=== PATIENT | male | born 1965 | race Caucasian/White ===

== ENCOUNTER 2021-06-24 18:32 | Inpatient (IN) ==
[2021-06-24] MEDS ORDERED: 0.9 % Sodium Chloride 1,000 ML IVC ONE ×2 (19:39→21:16)
[2021-06-24 19:41] LABS: Basophils # 0.1 K/mcL (0.0-0.2); Basophils % 0.4 %; Eosinophils # 0.2 K/mcL (0.0-0.6); Eosinophils % 1.6 %; Hematocrit 34.5 % (37.5-50.1); Hemoglobin 11.1 g/dL (12.9-16.9); Immature Granulocytes % 1.4 % (0-4); Lymphocytes # 1.9 K/mcL (0.6-4.6); Lymphocytes % 13.8 %; Mean Corpuscular HGB Conc 32.2 g/dL (31.6-35.5); Mean Corpuscular Hemoglobin 26.7 pg (28.0-33.3); Mean Corpuscular Volume 82.9 fL (83.0-100.0); Mean Platelet Volume 9.4 fL (9.4-12.4); Monocytes # 0.8 K/mcL (0.0-1.3); Monocytes % 5.4 %; Neutrophils # 10.9 K/mcL (1.6-8.9); Platelet Count 350 K/mcL (140-400); Red Blood Count 4.16 M/mcL (4.19-5.50); Red Cell Distribution Width 15.5 % (11.5-14.5); Segmented Neutrophils % 77.4 %
[2021-06-24 19:48] LABS: VBG HCO3 25 mEq/L (21-27); VBG PCO2 30 mmHg (41-51); VBG PH 7.53 pH Units (7.32-7.42); VBG PO2 132 mmHg (25-50)
[2021-06-24 20:08] LABS: Alanine Aminotransferase 12 Units/L (7-52); Albumin 3.5 g/dL (3.5-5.7); Albumin/Globulin Ratio 0.7 (1.1-2.2); Alkaline Phosphatase 83 Units/L (34-104); Aspartate Amino Transferase 25 Units/L (13-39); BUN/Creatinine Ratio 18 (6-26); Bilirubin,Indirect 0.3 mg/dL (0.0-1.0); Bilirubin,Total 0.3 mg/dL (0.3-1.0); Blood Urea Nitrogen 49 mg/dL (6-20); Calcium 12.5 mg/dL (8.6-10.3); Carbon Dioxide 26 mEq/L (23-29); Chloride 95 mEq/L (98-107); Creatine Kinase 38 Units/L (30-223); Ethanol < 10 mg/dL (Less than 10); Globulin 4.9 g/dL (2.4-3.5); Glucose 92 mg/dL (70-105); Magnesium 1.8 mg/dL (1.6-2.6); Osmolality,Calculated 289 (280-300); Potassium 4.3 mEq/L (3.5-5.1); Sodium 133 mEq/L (136-145); Total Protein 8.4 g/dL (6.4-8.9); eGFR For African Americans 29 (> 60); eGFR For Non-African Americans 24 (> 60)
[2021-06-24 20:10] LABS: Bacteria,Urine Few per hpf (None-Few); Bilirubin,Urine Negative (Negative); Blood,Urine Trace (Negative); Calcium Oxalate Crystals,Urine Present per hpf; Clarity,Urine Turbid (Clear); Color,Urine Yellow (Yellow); Glucose,Urine (UA) Normal (Normal); Hyaline Casts,Urine Few per lpf (None Seen); Ketones,Urine Negative (Negative); Leukocyte Esterase,Urine Large (Negative); Mucus,Urine Few per lpf (None-Few); Nitrite,Urine Negative (Negative); Protein,Urine 50 mg/dL (Neg-Trace); Specific Gravity,Urine 1.016 (1.010-1.025); Squamous Epithelial Cell,Urine Few per hpf (None-Few); Urobilinogen,Urine Normal (Normal); WBC,Urine TNTC per hpf (0-3)
[2021-06-24 20:16] LABS: Amphetamine Screen,Urine Negative ng/mL (Cutoff=1000); Barbiturate Screen,Urine Negative ng/mL (Cutoff=200); Benzodiazepines Screen,Urine Negative ng/mL (Cutoff=200); Cannabinoid Screen,Urine Negative ng/mL (Cutoff = 50); Cocaine Screen,Urine Negative ng/mL (Cutoff= 300); Opiate Screen,Urine Negative ng/mL (Cutoff=300); Phencyclidine Screen,Urine Negative ng/mL (Cutoff=25)
[2021-06-24] MEDS ORDERED: Piperacillin/Tazobactam 3.375 GM in 0.9 % Sodium Chloride Mini Bag 100 ML IVPB ONE (20:27)
[2021-06-24] MEDS ORDERED: Vancomycin 1,250 MG/262.5 ML IV.SOLN IVPB ONE (20:27)
[2021-06-24] MEDS ORDERED: Melatonin 3 MG TABLET PO PRN (21:15)
[2021-06-24] MEDS ORDERED: 0.9 % Sodium Chloride 1,000 ML IVC SCH (21:15)
[2021-06-24] MEDS ORDERED: Acetaminophen 325 MG TABLET PO PRN (21:15)
[2021-06-24] MEDS ORDERED: *HR* Promethazine 25 MG/ML VIAL IM PRN (21:15)
[2021-06-24] MEDS ORDERED: Naloxone 0.4 MG/ML INJ IVP PRN (21:15)
[2021-06-24] MEDS ORDERED: Ondansetron 4 MG/2 ML VIAL IVP PRN (21:15)
[2021-06-24 22:37] LABS: VBG Ionized Calcium 1.49 mmol/L (1.15-1.35)
[2021-06-25 00:53] LABS: Hematocrit 32.8 % (37.5-50.1); Hemoglobin 10.2 g/dL (12.9-16.9); Mean Corpuscular HGB Conc 31.1 g/dL (31.6-35.5); Mean Corpuscular Hemoglobin 26.2 pg (28.0-33.3); Mean Corpuscular Volume 84.3 fL (83.0-100.0); Mean Platelet Volume 9.1 fL (9.4-12.4); Platelet Count 330 K/mcL (140-400); Red Blood Count 3.89 M/mcL (4.19-5.50); Red Cell Distribution Width 15.6 % (11.5-14.5); White Blood Count 11.1 K/mcL (4.3-11.1)
[2021-06-25 00:58] LABS: Calcium 11.9 mg/dL (8.6-10.3); Potassium 3.6 mEq/L (3.5-5.1)
[2021-06-25] MEDS ORDERED: 0.9 % Sodium Chloride 1,000 ML IVC ONE (01:00)
[2021-06-25] MEDS ORDERED: D5% in Water 1,000 ML IVC PRN (01:05)
[2021-06-25] MEDS ORDERED: *HR* Dextrose 50 % in Water (Syg) 50 ML SYRINGE IVP PRN (01:05)
[2021-06-25] MEDS ORDERED: Dextrose 4 GM Chewable Tablets PO PRN ×2 (01:05)
[2021-06-25 07:06] LABS: Protein/Creatinine Ratio,Urine 0.76 mg/mg (0.00-0.20)
[2021-06-25] MEDS: cefTRIAXone 1,000 MG in 0.9 % Sodium Chloride 10 ML IVP SCH (07:44)
[2021-06-25] MEDS: Insulin LISPRO 300 UNITS/3 ML VIAL SUBQ SCH ×3 (07:47→17:57)
[2021-06-25] MEDS: *HR* Heparin 5,000 UNIT/ML VIAL SQ SCH (21:07)
[2021-06-26 05:01] LABS: Basophils % 0.5 %; Eosinophils # 0.2 K/mcL (0.0-0.6); Hematocrit 32.5 % (37.5-50.1); Hemoglobin 10.1 g/dL (12.9-16.9); Immature Granulocytes % 1.5 % (0-4); Lymphocytes # 1.4 K/mcL (0.6-4.6); Lymphocytes % 18.5 %; Mean Corpuscular HGB Conc 31.1 g/dL (31.6-35.5); Mean Corpuscular Hemoglobin 26.9 pg (28.0-33.3); Mean Corpuscular Volume 86.7 fL (83.0-100.0); Mean Platelet Volume 9.3 fL (9.4-12.4); Monocytes # 0.6 K/mcL (0.0-1.3); Monocytes % 7.3 %; Neutrophils # 5.4 K/mcL (1.6-8.9); Platelet Count 293 K/mcL (140-400); Red Blood Count 3.75 M/mcL (4.19-5.50); Red Cell Distribution Width 15.9 % (11.5-14.5); Segmented Neutrophils % 69.2 %; White Blood Count 7.8 K/mcL (4.3-11.1)
[2021-06-26] MEDS: *HR* Heparin 5,000 UNIT/ML VIAL SQ SCH ×3 (05:06→20:13)
[2021-06-26 05:29] LABS: Albumin/Globulin Ratio 0.8 (1.1-2.2); Bilirubin,Total 0.3 mg/dL (0.3-1.0); Calcium 10.3 mg/dL (8.6-10.3); Globulin 3.8 g/dL (2.4-3.5); Potassium 4.4 mEq/L (3.5-5.1); Total Protein 6.8 g/dL (6.4-8.9)
[2021-06-26] MEDS: Insulin LISPRO 300 UNITS/3 ML VIAL SUBQ SCH ×3 (08:36→17:35)
[2021-06-26] MEDS: cefTRIAXone 1,000 MG in 0.9 % Sodium Chloride 10 ML IVP SCH (08:37)
[2021-06-26] MEDS: Cefdinir 300 MG CAPSULE PO SCH ×2 (13:47→20:13)
[2021-06-26] MEDS: Sucralfate 1 GM TABLET PO SCH (20:13)
[2021-06-27 03:20] LABS: Calcium 9.5 mg/dL (8.6-10.3); Magnesium 1.4 mg/dL (1.6-2.6); Potassium 4.4 mEq/L (3.5-5.1)
[2021-06-27] MEDS: *HR* Heparin 5,000 UNIT/ML VIAL SQ SCH (05:28)
[2021-06-27] MEDS: Cefdinir 300 MG CAPSULE PO SCH (08:49)
[2021-06-27] MEDS: Sucralfate 1 GM TABLET PO SCH (08:49)
[2021-06-27] MEDS: Insulin LISPRO 300 UNITS/3 ML VIAL SUBQ SCH (08:50)
[2021-06-27] MEDS ORDERED: Loratadine 10 MG TABLET PO SCH (09:00)
[2021-06-27 11:34] VITALS: BP 114/69; PULSE 74; TEMP 98.6; O2SAT 97
== END 2021-06-27 12:20 | disposition home or self-care (01) | DRG 720 ==
LOC: EMEROOARM 18:32 → 3NENU 18:32 → SUATTDRO 21:31 → 3NENU 22:05
PROVIDERS: ADMIT Internal Medicine; ATTEND Internal Medicine